=== PATIENT | female | born 1980 | race Two or more races ===

== ENCOUNTER 2020-04-04 13:27 | Day surgery (SDC) | payer OTHER ==
[~2020-04-04 13:27] MED LIST: GLIPIZIDE XL10 MG; METFORMIN HCL500 M3
== END 2020-04-04 21:30 | disposition home or self-care (01) ==
LOC: CIR.AMB 13:27
PROVIDERS: ATTEND Obstetrics & Gynecology Obstetrics
DX: N85.01 Benign endometrial hyperplasia (principal); Z20.828 Contact with and (suspected) exposure to other viral communicable diseases